=== PATIENT | female | born 1950 | race African-American/Black ===

== ENCOUNTER 2023-01-26 13:20 | Emergency (ER) | payer MEDICAID, MEDICARE ==
[~2023-01-26] VITALS: Ht 157.5 cm; Wt 68.0 kg
[2023-01-26] MEDS ORDERED: SODIUM CHLORIDE 0.9% 1,000 ML IV ONE (14:45)
[2023-01-26 15:06] LABS: BASOPHILS % 0.4 % (0.0-2.0); EOSINOPHILS % 0.5 % (0.0-5.0); HEMATOCRIT. 36.5 % (36.0-48.0); HEMOGLOBIN. 12.2 g/dL (12.0-16.0); LYMPHOCYTES % 25.7 % (20.0-50.0); MEAN CORPUSCULAR HEMOGLOBIN 30.1 pg (28.0-32.0); MEAN CORPUSCULAR VOLUME 89.6 fL (81.0-99.0); MEAN PLATELET VOLUME 8.8 fl (7.4-10.4); NEUTROPHILS % 66.4 % (40.0-76.0); PLATELET 194 x1000/uL (130-400); RED BLOOD CELL COUNT 4.07 mill/uL (4.2-5.4); RED CELL DISTRIBUTION WIDTH 15.6 % (11.6-14.6)
[2023-01-26 15:07] LABS: CHLORIDE 101 mEq/L (98-107)
[2023-01-26] MEDS ORDERED: ASPIRIN 81MG TABLET PO ONE (16:30)
[2023-01-26 17:00] VITALS: BP 132/63
== END 2023-01-27 06:57 | disposition left against medical advice (07) ==
LOC: ER 13:55
DX: R55 Syncope and collapse (principal); R94.31 Abnormal electrocardiogram [ECG] [EKG]; I10 Essential (primary) hypertension; Z87.440 Personal history of urinary (tract) infections
CPT/HCPCS: 36415; 71045; 80053; 82962; 83880; 84484; 85025; 93005; 96360; 96361; 99285; J7030